=== PATIENT | male | born 1955 | race Caucasian/White ===

== ENCOUNTER 2019-09-28 12:49 | Emergency (ER) | payer MEDICAID ==
[~2019-09-28] VITALS: Ht 167.6 cm; Wt 99.0 kg
[2019-09-28] MEDS ORDERED: ONDANSETRON 2MG/ML, 2ML ONE (14:58)
[2019-09-28] MEDS ORDERED: HYDROmorphone 1 MG/ML, 1ML VIAL ONE (14:58)
[2019-09-28] MEDS ORDERED: SODIUM CHLORIDE FLUSH 10ML SYR IVF ONE (15:00)
[2019-09-28] MEDS ORDERED: HYDROmorphone 2 MG/ML, 1ML IVPush PRN (15:00)
[2019-09-28] MEDS ORDERED: ONDANSETRON 2MG/ML, 2ML IVPush ONE (15:00)
[2019-09-28 15:07] LABS: BASOPHILS # (AUTO) 0.05 x10^3/uL (0-0.1); BASOPHILS % (AUTO) 1 % (0-1); EOSINOPHILS # (AUTO) 0.34 x10^3/uL (0-0.4); EOSINOPHILS % (AUTO) 3 % (1-7); LYMPHOCYTES # (AUTO) 3.41 x10^3/uL (1-3.4); LYMPHOCYTES % (AUTO) 28 % (22-44); MD NO; MEAN CORPUSCULAR HEMOGLOBIN 31.6 pg (27.5-34.5); MEAN CORPUSCULAR HGB CONC 33.5 g/dL (33.2-36.2); MEAN CORPUSCULAR VOLUME 94.2 fL (81-97); MEAN PLATELET VOLUME 8.6 fL (7.4-10.4); MONOCYTES # (AUTO) 0.72 x10^3/uL (0.2-0.8); MONOCYTES % (AUTO) 6 % (2-9); NEUTROPHILS # (AUTO) 7.53 x10^3/uL (1.8-6.8); NEUTROPHILS % (AUTO) 63 % (42-75); PLATELET COUNT 349 x10^3/uL (130-400); RED BLOOD COUNT 5.24 x10^6/uL (4.38-5.82); RED CELL DISTRIBUTION WIDTH 13.7 % (9.4-14.8)
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
[2019-09-28 15:18] LABS: ALANINE AMINOTRANSFERASE 89 U/L (12-78); ANION GAP 8 mmol/L (5-15); CALCIUM 8.9 mg/dL (8.5-10.1); CHLORIDE 107 mmol/L (98-107); CREATININE 0.97 mg/dL (0.7-1.3)
[2019-09-28 15:20] LABS: ALKALINE PHOSPHATASE 57 U/L (45-117); BILIRUBIN,TOTAL 0.4 mg/dL (0.2-1.0); TOTAL PROTEIN 7.5 g/dL (6.4-8.2)
[2019-09-28 15:27] VITALS: BP 134/83
--- NOTE | 2019-09-28 15:28 | NUR ---
PIV 20G LAC INITIATED. ZOFRAN & DILAUDID GIVEN PER EMAR. LAST ORAL INTAKE: 1000 TODAY, SANDWICH. LAST BM: TODAY.
--- NOTE | 2019-09-28 15:38 | NUR ---
TO CT PER JIHAN
[2019-09-28 15:46] LABS: MICROSCOPIC NOT IND
[2019-09-28 15:54] LABS: CULTURE INDICATED? NO
[2019-09-28] MEDS ORDERED: OMNIPAQUE 350 MG/ML, 100ML BOTTLE ONE (16:11)
--- NOTE | 2019-09-28 17:18 | NUR ---
TASK RN: RECEIVED BEDSIDE REPORT FROM RAMSEY FERMIN
--- NOTE | 2019-09-28 17:18 | NUR ---
PT TO BE DC'D. PT REPORT TO BREAK RN: KADI. PT CARE TRANSFERRED.
--- NOTE | 2019-09-28 17:49 | NUR ---
;LATE ENTRY FOR 173: Patient/Caregiver given discharge instructions and they have confirmed that they understand the instructions. Patient ambulatory with steady gait. PT LEFT WITH ALL PERSONAL BELONGINGS.
== END 2019-09-28 17:55 | disposition home or self-care (01) ==
LOC: ED 17:05
DX: K52.9 Noninfective gastroenteritis and colitis, unspecified (principal); I10 Essential (primary) hypertension; E11.9 Type 2 diabetes mellitus without complications; F17.200 Nicotine dependence, unspecified, uncomplicated
CPT/HCPCS: 36415; 74177; 80053; 81003; 83605; 85025; 96374; 96375; 99284; J1170; J2405; Q9967